=== PATIENT | female | born 1940 | race Caucasian/White ===

== ENCOUNTER 2017-05-21 06:15 | Day surgery (SDC) | payer MEDICARE, OTHER ==
[~2017-05-21] VITALS: Ht 157.5 cm; Wt 66.8 kg
[~2017-05-21 06:15] MED LIST: BIOTIN5000 MCG PO; Calcium + Vita1 EACH PO; Dyazide 37.5-21 EACH PO; ELIQUIS5 MG PO; LEVO-T75 MCG PO; METO50ER PO; NIAC500ER PO; NIACIN ER500 MG PO; ONDA4 PO; RESVERATROL100 MG PO; Reclast 55 MG/100 M IV; Vitamin D2000 UNIT PO
[2017-05-21] MEDS ORDERED: [UNRECOGNIZED DRUG - CODE] PO (07:10)
== END 2017-05-21 08:24 | disposition home or self-care (01) ==
LOC: ORSCSDS 06:15
PROVIDERS: Ophthalmology
PROC: 08RK3JZ Replacement of Left Lens with Synthetic Substitute, Percutaneous Approach (ICD-10-PCS; principal; 2017-05-21 07:30)
DX: H25.12 Age-related nuclear cataract, left eye (principal); I10 Essential (primary) hypertension; E03.9 Hypothyroidism, unspecified; I48.91 Unspecified atrial fibrillation; Z79.01 Long term (current) use of anticoagulants; Z79.899 Other long term (current) drug therapy
CPT/HCPCS: J2250; J3301; J7040; V2632

== ENCOUNTER → 2017-08-27 | Outpatient (CLI) | payer MEDICARE, OTHER ==
[~2017-08-27] MED LIST changes: +[UNRECOGNIZED DRUG - CODE] PO
== END ==
LOC: LAB SHORT 07:37 → PLD 07:37
DX: C44.91 Basal cell carcinoma of skin, unspecified (principal)
CPT/HCPCS: 88305